=== PATIENT | female | born 1955 | race Caucasian/White ===

== ENCOUNTER 2023-03-24 16:09 | Emergency (ER) | payer MEDICARE ==
[2023-03-24] VITALS (19 sets, daily range): BP systolic 137–199; BP diastolic 68–86
[~2023-03-24] VITALS: Ht 162.6 cm; Wt 91.0 kg
[2023-03-24] MEDS ORDERED: GABAPENTIN300 M2 (16:51)
[2023-03-24] MEDS ORDERED: CELEBREX100 M1 PO (16:52)
[2023-03-24] MEDS ORDERED: TIZANIDINE4 MG PO (16:52)
[2023-03-24] MEDS ORDERED: PROTONIX40 M2 PO (16:53)
[2023-03-24] MEDS ORDERED: COZAAR25 MG PO (16:53)
[2023-03-24] MEDS ORDERED: CITALOPRAM40 MG PO (16:53)
[2023-03-24] MEDS ORDERED: PEPCID20 MG PO (16:54)
[2023-03-24] MEDS ORDERED: METFORMIN HCL500 M1 PO (16:54)
[2023-03-24] MEDS ORDERED: LOPRESSOR25 M1 PO (16:55)
[2023-03-24 17:22] LABS: BASO% 0.7 % (0-3); EOS% 4.3 % (0-8); HEMATOCRIT 38.6 % (37.0-47.0); HEMOGLOBIN 12.8 g/dl (12.0-16.0); IMMATURE GRANULOCYTES 0.3 % (0.0-5.0); LYMPH% 22.3 % (15-41); MEAN CELL VOLUME 89.8 fL CALC (80.0-100.0); MEAN CORPUSCULAR HGB 29.8 pG CALC (26.0-32.0); MEAN CORPUSCULAR HGB CONC 33.2 g/dL CAL (32.0-36.0); MONO% 9.4 % (2-13); NEUT# 4.65 thou/uL (2.00-7.15); RED BLOOD COUNT 4.3 mill/uL (4.20-5.60); RED CELL DISTRI WIDTH 12.7 % (11.5-15.5)
[2023-03-24 17:34] LABS: ALBUMIN 4.6 g/dL (3.2-5.0); ALKALINE PHOSPHATASE 173 u/l (38-126); ANION GAP 14 (6-22 (CALC)); BILIRUBIN, TOTAL 0.7 mg/dL (0.02-1.3); BUN 26 mg/dL (8-23); BUN/CREATININE RATIO 35 (12-20 (CALC)); CARBON DIOXIDE 26 mmol/l (22-30); CHLORIDE 102 mmol/l (95-108); CREATININE 0.7 mg/dL (0.5-1.0); GFR FOR AFR.AMER. > 60 ML/MIN (>=60 (CALC)); GFR OTHER RACES > 60 ML/MIN (>=60 (CALC)); LIPASE 146 u/l (23-300); POTASSIUM 4.1 mmol/l (3.5-5.1); SGOT/AST 45 u/l (9-36); SODIUM 137 mmol/l (137-146); TOTAL PROTEIN 7.9 g/dL (6.3-8.2)
[2023-03-24 19:54] LABS: URINE BILIRUBIN - DIPSTICK Negative (NEGATIVE); URINE BLOOD DIPSTICK Negative (NEGATIVE); URINE GLUCOSE - DIPSTICK Negative (NEGATIVE); URINE KETONE Negative (NEGATIVE); URINE NITRITE - DIPSTICK Negative (Negative); URINE PROTEIN - DIPSTICK Negative (NEG-TRACE); URINE SPECIFIC GRAVITY <=1.005; URINE UROBILINOGEN - DIPSTICK 0.2 E.U./dL (0.2)
[2023-03-24 19:56] LABS: URINE COLOR Yellow; URINE LEUK ESTERASE Small (NEGATIVE)
[2023-03-24 20:03] LABS: URINE SQUAMOUS EPITHELIAL CELL FEW EPI/hpf (0-FEW)
[2023-03-24] MEDS ORDERED: VOLTAREN - GENE75 MG PO (20:16)
[2023-03-24] MEDS ORDERED: LORTAB 5/3255 MG PO (20:16)
== END 2023-03-24 20:50 | disposition home or self-care (01) ==
LOC: ED 16:09
PROVIDERS: Family Medicine
DX: R10.2 Pelvic and perineal pain (principal); R93.5 Abnormal findings on diagnostic imaging of other abdominal regions, including retroperitoneum; I10 Essential (primary) hypertension; E66.9 Obesity, unspecified
CPT/HCPCS: Q9967